=== PATIENT | male | born 1945 | race Caucasian/White ===

== ENCOUNTER 2025-06-15 06:21 | Day surgery (SDC) | payer MEDICARE, MEDICAID ==
[2025-06-15] MEDS: Lactated Ringers 1,000 ML IV SCH (06:44)
[2025-06-15] MEDS ORDERED: Midazolam 1 MG/ML 2 ML SDV ONE (07:57)
[2025-06-15] MEDS ORDERED: Propofol 200 MG/20 ML SDV ONE (07:58)
[2025-06-15] MEDS ORDERED: fentaNYL 100 MCG/2 ML SDV ONE (07:58)
== END 2025-06-15 09:30 ==
LOC: VM.SDS 06:21
PROVIDERS: ATTEND Student in an Organized Health Care Education/Training Program
DX: Z12.11 Encounter for screening for malignant neoplasm of colon (principal); I12.9 Hypertensive chronic kidney disease with stage 1 through stage 4 chronic kidney disease, or unspecified chronic kidney disease; E11.22 Type 2 diabetes mellitus with diabetic chronic kidney disease; N18.4 Chronic kidney disease, stage 4 (severe); D63.1 Anemia in chronic kidney disease; Z80.0 Family history of malignant neoplasm of digestive organs; Z88.0 Allergy status to penicillin; Z88.2 Allergy status to sulfonamides; Z79.899 Other long term (current) drug therapy; Z86.0101 Personal history of adenomatous and serrated colon polyps
CPT/HCPCS: G0105; J2250; J2704; J3010; J7120

== ENCOUNTER 2025-07-19 09:53 | Emergency (ER) | payer MEDICARE, MEDICAID ==
[2025-07-19 10:09] LABS: BASOPHILS ABSOLUTE AUTO 0.0 x10^3/uL (0.0-0.2); BASOPHILS PERCENT AUTO 0.1 % (0.2-1.2); EOSINOPHILS ABSOLUTE AUTO 0.0 x10^3/uL (0.0-0.5); EOSINOPHILS PERCENT AUTO 0.0 % (0.0-4.0); IMMATURE GRAN ABSOLUTE AUTO 0.01 x10^3/uL (0.00-0.07); IMMATURE GRAN PERCENT AUTO 0.10 % (0.00-0.43); LYMPHOCYTES ABSOLUTE AUTO 0.2 x10^3/uL (1.0-4.8); LYMPHOCYTES PERCENT AUTO 1.6 % (25.0-50.0); MONOCYTES ABSOLUTE AUTO 0.5 x10^3/uL (0.0-0.8); MONOCYTES PERCENT AUTO 3.7 % (2.0-11.0); NEUTROPHILS ABSOLUTE AUTO 11.7 x10^3/uL (1.8-7.7); NEUTROPHILS PERCENT AUTO 94.5 % (50.0-80.0); PLATELET COUNT,PLT 178 x10^3/uL (130-400); RED BLOOD CELL COUNT 1.93 x10^6/uL (4.5-6.0); WHITE BLOOD CELL COUNT,WBC 12.4 x10^3/uL (4.0-10.0)
[2025-07-19 10:35] LABS: A/G RATIO 0.87; ALANINE AMINOTRANSFERASE,ALT 15 U/L (16-63); ASPARTATE AMNIOTRANSFERASE,AST 13 U/L (15-37); BILIRUBIN TOTAL 0.4 mg/dL (0.2-1.0); BLOOD UREA NITROGEN,BUN 30 mg/dL (7-18); CARBON DIOXIDE,CO2 29 mmol/L (21-32); CHLORIDE,CL 105 mmol/L (98-107); CREATININE 2.4 mg/dL (0.70-1.30); ESTIMATED GFR 27 mL/min (>=60); GLUCOSE RANDOM 117 mg/dL (70-99); POTASSIUM,K 4.3 mmol/L (3.5-5.1); PROTEIN TOTAL,TP 5.6 g/dL (6.4-8.2); SODIUM,NA 137 mmol/L (136-145)
[2025-07-19 11:40] LABS: APPEARANCE,URINE SLIGHTLY CLOUDY (CLEAR); GLUCOSE,URINE NEGATIVE (NEGATIVE); OCCULT BLOOD,URINE TRACE-LYSED (NEGATIVE)
[2025-07-19 11:51] LABS: SQUAMOUS EPITHELIAL CELLS,UR FEW /HPF (NOT SEEN); WBC CASTS,URINE FEW /HPF (NOT SEEN)
== END 2025-07-19 15:17 ==
LOC: VM.ED 09:53
DX: R11.2 Nausea with vomiting, unspecified (principal); R19.7 Diarrhea, unspecified; D64.9 Anemia, unspecified; N30.00 Acute cystitis without hematuria; I12.9 Hypertensive chronic kidney disease with stage 1 through stage 4 chronic kidney disease, or unspecified chronic kidney disease; N18.9 Chronic kidney disease, unspecified; E11.9 Type 2 diabetes mellitus without complications; Z88.0 Allergy status to penicillin; Z88.2 Allergy status to sulfonamides; Z79.899 Other long term (current) drug therapy
CPT/HCPCS: 36415; 36430; 80053; 81001; 83690; 85025; 86850; 86900; 86901; 86920; 86922; 87077; 87086; 87186; 99284; P9016